=== PATIENT | male | born 2000 | race African-American/Black ===

== ENCOUNTER 2019-02-03 06:01 | Emergency (ER) | payer OTHER ==
[~2019-02-03] VITALS: Ht 182.9 cm; Wt 79.5 kg
[2019-02-03] MEDS ORDERED: ONDANSETRON 4MG/2ML VIAL (J2405) IV ONE (06:45)
[2019-02-03] MEDS ORDERED: KETOROLAC 30 MG/ML VIAL (J1885) IV ONE (06:45)
[2019-02-03 07:20] LABS: BASO % 0.4 % (0.0-1.0); EOS % 0.2 % (0.0-3.0); HEMATOCRIT 42.3 % (42.0-52.0); HEMOGLOBIN 14.1 g/dl (13.5-17.5); LYMPH # 2.7 10^3/uL (1.5-6.5); LYMPH % 25.4 % (24.0-44.0); MEAN CORPUSCULAR HEMOGLOBIN 31.1 pg (27.0-33.0); MEAN CORPUSCULAR HGB CONC 33.3 g/dl (32.0-36.5); MEAN CORPUSCULAR VOLUME 93.2 fl (80.0-96.0); MONO # 0.5 10^3/uL (0.0-0.8); MONO % 4.7 % (0.0-5.0); NEUTROPHILS # 7.3 10^3/uL (1.8-7.7); NEUTROPHILS % 68.9 % (36.0-66.0); PLATELET COUNT, AUTOMATED 274 10^3/uL (150-450); RED BLOOD COUNT 4.54 10^6/uL (4.30-6.10); WHITE BLOOD COUNT 10.6 10^3/uL (4.0-10.0)
[2019-02-03 07:22] LABS: ALBUMIN 4.4 GM/DL (3.2-5.2); ALT/SGPT 27 U/L (12-78); BILIRUBIN,TOTAL 0.5 MG/DL (0.2-1.0); BLOOD UREA NITROGEN 8 MG/DL (7-18); CALCIUM LEVEL 9.2 MG/DL (8.5-10.1); CARBON DIOXIDE LEVEL 29 MEQ/L (21-32); CHLORIDE LEVEL 108 MEQ/L (98-107); GLUCOSE, FASTING 91 MG/DL (70-100); SODIUM LEVEL 142 MEQ/L (136-145); TOTAL PROTEIN 7.6 GM/DL (6.4-8.2)
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
[2019-02-03] MEDS ORDERED: MOBI4TAB PO (10:08)
[2019-02-03] MEDS ORDERED: ZANA4TAB PO (10:08)
[2019-02-03 10:43] VITALS: BP 126/68
--- NOTE | 2019-02-03 10:58 | REP ---
CHEST, TWO VIEWS: There is no evidence of acute infiltrate. No pleural effusion is seen. The heart is normal in size. The mediastinal silhouette is unremarkable. The visualized osseous structures are intact. IMPRESSION: No acute pulmonary disease. Electronically Signed by Raffy Lezama MD 02/03/2019 04:28 P
--- NOTE | 2019-02-03 11:24 | REP ---
LEFT LOWER LEG: AP and lateral views of the left lower leg performed. Metallic screws are seen in the distal femur. I see no acute fracture or dislocation. Oval smooth calcification anterior to the tibiotalar joint on the lateral view may represent an old fracture. IMPRESSION: No acute fracture or dislocation. Electronically Signed by Raffy Lezama MD 02/03/2019 04:33 P
== END 2019-02-03 10:44 | disposition home or self-care (01) ==
LOC: M ED 06:01
DX: M54.2 Cervicalgia (principal); R07.89 Other chest pain; S89.92XA Unspecified injury of left lower leg, initial encounter; V43.62XA Car passenger injured in collision with other type car in traffic accident, initial encounter; Y92.9 Unspecified place or not applicable; Y93.9 Activity, unspecified; Y99.9 Unspecified external cause status; R93.0 Abnormal findings on diagnostic imaging of skull and head, not elsewhere classified; Z72.0 Tobacco use; R79.0 Abnormal level of blood mineral; R56.9 Unspecified convulsions
CPT/HCPCS: 70450; 71046; 72125; 73590; 80053; 85025; 86850; 86900; 86901; 96374; 96375; 99285; J1885; J2405

== ENCOUNTER 2019-02-13 11:19 | Inpatient (IN) | payer OTHER ==
[~2019-02-13] VITALS: Ht 182.9 cm; Wt 73.9 kg
[~2019-02-13 11:19] MED LIST: MOBI4TAB PO; ZANA4TAB PO
[2019-02-13 12:14] LABS: HEMOGLOBIN 13.9 g/dl (13.5-17.5); MEAN CORPUSCULAR HGB CONC 33.1 g/dl (32.0-36.5); MEAN CORPUSCULAR VOLUME 96.8 fl (80.0-96.0); PLATELET COUNT, AUTOMATED 265 10^3/uL (150-450); RED BLOOD COUNT 4.34 10^6/uL (4.30-6.10); WHITE BLOOD COUNT 6.8 10^3/uL (4.0-10.0)
[2019-02-13 13:00] LABS: ACETAMINOPHEN LEVEL < 2.0 UG/ML (10.0-30.0); ALBUMIN 4.1 GM/DL (3.2-5.2); ALT/SGPT 18 U/L (12-78); AMPHETAMINES LEVEL URINE NEGATIVE (NEGATIVE); BARBITURATES URINE NEGATIVE (NEGATIVE); BENZODIAZEPINES URINE NEGATIVE (NEGATIVE); BILIRUBIN,DIRECT 0.3 MG/DL (0.0-0.2); BILIRUBIN,TOTAL 0.9 MG/DL (0.2-1.0); BLOOD UREA NITROGEN 7 MG/DL (7-18); CALCIUM LEVEL 9.2 MG/DL (8.5-10.1); CANNABINOIDS URINE POSITIVE (NEGATIVE); CARBON DIOXIDE LEVEL 29 MEQ/L (21-32); CHLORIDE LEVEL 108 MEQ/L (98-107); COCAINE METABOLITE URINE NEGATIVE (NEGATIVE); CREATININE FOR GFR 1.07 MG/DL (0.70-1.30); ETHYL ALCOHOL (ETHANOL) < 0.003 % (0.000-0.010); GLUCOSE, FASTING 82 MG/DL (70-100); METHADONE URINE NEGATIVE (NEGATIVE); OPIATES URINE NEGATIVE (NEGATIVE); PHENCYCLIDINE URINE NEGATIVE (NEGATIVE); POTASSIUM SERUM 4.4 MEQ/L (3.5-5.1); SALICYLATE LEVEL < 1.7 MG/DL (5.0-30.0); SODIUM LEVEL 141 MEQ/L (136-145); THYROID STIMULATING HORMONE 0.844 uIU/ML (0.463-3.98); TOTAL PROTEIN 6.9 GM/DL (6.4-8.2)
[2019-02-13] MEDS ORDERED: OLANZapine ORAL DISINTEGRATING TAB 5MG PO PRN (15:00)
[2019-02-13] MEDS ORDERED: traZODone 50 MG TAB PO PRN (15:00)
[2019-02-13] MEDS ORDERED: MAALOX 30 ML SUSP *UDC PO PRN (15:00)
[2019-02-13] MEDS ORDERED: ACETAMINOPHEN TAB 650MG DOSE (2X325MG) PO PRN (15:00)
[2019-02-13] MEDS ORDERED: MOM 30ML SUSPENSION UDC PO PRN (15:00)
[2019-02-13] MEDS ORDERED: MELO7.5T35 PO (15:12)
[2019-02-13] MEDS ORDERED: TIZA4TAB4 PO (15:12)
[2019-02-13] MEDS: NICOTINE 21MG/24HR 1 EA TRANSDERMAL TD SCH (16:38)
[2019-02-13 18:32] VITALS: BP 125/58
[2019-02-14 06:47] VITALS: BP 122/63
[2019-02-14] MEDS: NICOTINE 21MG/24HR 1 EA TRANSDERMAL TD SCH (08:38)
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
[2019-02-14 18:00] VITALS: BP 134/85
[2019-02-15 07:14] VITALS: BP 130/63
[2019-02-15] MEDS: ARIPiprazole 2 MG TAB PO SCH (08:14)
[2019-02-15] MEDS: SERTRALINE HCL 50 MG TAB PO SCH (08:14)
[2019-02-15] MEDS: NICOTINE 21MG/24HR 1 EA TRANSDERMAL TD SCH (08:14)
[2019-02-15 18:18] VITALS: BP 133/66
--- NOTE | 2019-02-16 00:04 | MHIPNPDOC ---
[facility] Progress Note Progress Note DATE OF SERVICE: 02/15/19 HISTORY: Patient is a 18 -year-old , male, who as per ED consult: "Patient was seen for an intake with SANTIAGO today at [facility] & rep ortedly spoke of suicide. He was then sent to where this continued. While at , patient reportedly admitted to cinching a belt around his neck last night with suicidal intent. He also continued to endorse SI today, stating that he was planning to " VITAL SIGNS: See below. NEW TEST RESULTS: See below CURRENT MEDICATIONS: See below. MENTAL STATUS EXAMINATION: Patient is a 18-year old male, who is alert, irritable, dressed in hospital clothes, superficially cooperative. Speech: Is impoverished because he is irritated. Tone/rate, rhythm and volume are normal. Language skills are good. Thought processes including: linear but not exactly logical. Thought content: full of cognitive distortions, ideas of reference, some paranoid thoughts, denies SI, denies HI. Abstract reasoning, and computation: fair Description of associations: good. Description of abnormal or psychotic thoughts: denies AV hallucinations, denies thought delusions but at times he seems hypervigilant or mildly paranoid. Judgment: poor. Insight: poor. Orientation: x 3. Recent and remote memory: good. Attention span and concentration: intact. Language: no abnormalities observed. Fund of knowledge: full. Mood: irritable, angry. Affect: congruent with mood. DIAGNOSES: 1. Persistent depressive disorder 2. cluster B personality disorder. ASSESSMENT: I was explaining why he needs therapy, was talking to him about cogn itive distortions and when I talked to him about medications, that it would take 4-6 weeks to kick in, he goes ahead and immediately asks: "Do you mean you are going to keep me for 4 or 6 more weeks ?". I used that to explain that is exactly his problem because I had just explained that he was going to be discharged next week and that he shouldn't yariel staying here for along time be cause this was an acute inpatient setting. MANAGEMENT PLAN: Will continue same treatment plan. TIME SPENT: 25 minutes. Vital Signs Vital Signs Date Time Temp Pulse Resp B/P (MAP) Pulse Ox O2 Delivery O2 Flow Rate FiO2 02/15/19 18:18 99.0 75 18 133/66 (88) 02/13/19 14:20 100 Room Air Current Medications Current Medications Acetaminophen (Tylenol Tab) 650 mg Q6HP PRN PO HEADACHE or DISCOMFORT; Start 02/13/19 at 15:00 Al Hydrox/Mg Hydrox/Simethicone (Mylanta) 30 ml Q4HP PRN PO HEARTBURN/INDIGESTION; Start 02/13/19 at 15:00 Aripiprazole (AbiLIFY) 2 mg DAILY PO Last administered on 02/15/19at 08:14; Start 02/15/19 at 09:00 Home Med (Med Rec Complete!) ASDIRECTED XX ; Start 02/13/19 at 15:30; Stop 02/13/19 at 15:30; Status DC Magnesium Hydroxide (Milk Of Magnesia) 30 ml DAILYPRN PRN PO CONSTIPATION; Start 02/13/19 at 15:00 Nicotine (Nicoderm Cq 21mg) 1 patch DAILY TD Last administered on 02/15/19at 08 :14; Start 02/13/19 at 09:00 Olanzapine (ZyPREXA ZYDIS) 5 mg Q4HP PRN PO ANXIETY/AGITATION; Start 02/13/19 at 15:00 Sertraline HCl (Zoloft) 50 mg QAM PO Last administered on 02/15/19at 08:14; Start 02/15/19 at 09:00 Trazodone HCl (Desyrel) 50 mg QHSP PRN PO INSOMNIA; Start 02/13/19 at 15:00 Allergies Coded Allergies: No Known Allergies (Unverified , 02/13/19) OUSMANE ZHANG MD Feb 15, 2019 23:59
[2019-02-16 06:44] VITALS: BP 104/54
[2019-02-16] MEDS: NICOTINE 21MG/24HR 1 EA TRANSDERMAL TD SCH (09:00)
[2019-02-16] MEDS: ARIPiprazole 2 MG TAB PO SCH (09:09)
[2019-02-16] MEDS: SERTRALINE HCL 50 MG TAB PO SCH (09:09)
--- NOTE | 2019-02-16 09:53 | MHIPNPDOC ---
[facility] Progress Note Progress Note DATE OF SERVICE: 02/16/19 HISTORY: Patient is a 18 -year-old , male, who as per ED consult: "Patient was seen for an intake with SANTIAGO today at [facility] & rep ortedly spoke of suicide. He was then sent to where this continued. While at , patient reportedly admitted to cinching a belt around his neck last night with suicidal intent. He also continued to endorse SI today, stating that he was planning to " VITAL SIGNS: See below. NEW TEST RESULTS: See below CURRENT MEDICATIONS: See below. MENTAL STATUS EXAMINATION: Patient is a 18-year old male, who is alert, dressed in hospital clothes, cooperative. Speech:Tone/rate, rhythm and volume are normal. Language skills are good. Thought processes including: linear and logical. Thought content: improved cognitive distortions, ideas of reference, some para noid thoughts, denies SI, denies HI. Abstract reasoning, and computation: fair Description of associations: good. Description of abnormal or psychotic thoughts: denies AV hallucinations, denies thought delusions but at times he seems hypervigilant or mildly paranoid that is improved today Judgment: poor. Insight: poor. Orientation: x 3. Recent and remote memory: good. Attention span and concentration: intact. Language: no abnormalities observed. Fund of knowledge: full. Mood: "ok," improved range, no longer irritable. Affect: congruent with mood. DIAGNOSES: 1. Persistent depressive disorder 2. cluster B personality disorder. ASSESSMENT:Pt seen and states that his mood is better. States he slept well last night. Feels he is tolerating his medications and they're beneficial. He is attending groups and finding them helpful. He denies SI/HI, hallucinations, delusions. He has improved cognitive distortions, hypervigilance, and paranoia to mild today. Pt feels safe here. MANAGEMENT PLAN: Will continue same treatment plan. TIME SPENT: 30 minutes. Vital Signs Vital Signs Date Time Temp Pulse Resp B/P (MAP) Pulse Ox O2 Delivery O2 Flow Rate FiO2 02/16/19 06:44 98.6 87 12 104/54 (71) 02/13/19 14:20 100 Room Air Current Medications Current Medications Acetaminophen (Tylenol Tab) 650 mg Q6HP PRN PO HEADACHE or DISCOMFORT; Start 02/13/19 at 15:00 Al Hydrox/Mg Hydrox/Simethicone (Mylanta) 30 ml Q4HP PRN PO HEARTBURN/INDIGESTION; Start 02/13/19 at 15:00 Aripiprazole (AbiLIFY) 2 mg DAILY PO Last administered on 02/16/19at 09:09; Start 02/15/19 at 09:00 Home Med (Med Rec Complete!) ASDIRECTED XX ; Start 02/13/19 at 15:30; Stop 02/13/19 at 15:30; Status DC Magnesium Hydroxide (Milk Of Magnesia) 30 ml DAILYPRN PRN PO CONSTIPATION; Start 02/13/19 at 15:00 Nicotine (Nicoderm Cq 21mg) 1 patch DAILY TD Last administered on 02/15/19at 08:14; Start 02/13/19 at 09:00 Olanzapine (ZyPREXA ZYDIS) 5 mg Q4HP PRN PO ANXIETY/AGITATION; Start 02/13/19 at 15:00 Sertraline HCl (Zoloft) 50 mg QAM PO Last administered on 02/16/19at 09:09; Start 02/15/19 at 09:00 Trazodone HCl (Desyrel) 50 mg QHSP PRN PO INSOMNIA; Start 02/13/19 at 15:00 Allergies Coded Allergies: No Known Allergies (Unverified , 02/13/19) DUANE RODRIGUEZ DO Feb 16, 2019 09:40
[2019-02-16 18:00] VITALS: BP 138/68
[2019-02-17 06:44] VITALS: BP 101/51
[2019-02-17] MEDS: NICOTINE 21MG/24HR 1 EA TRANSDERMAL TD SCH (08:22)
[2019-02-17] MEDS: SERTRALINE HCL 50 MG TAB PO SCH (08:22)
[2019-02-17] MEDS: ARIPiprazole 2 MG TAB PO SCH (08:22)
--- NOTE | 2019-02-17 08:43 | MHIPNPDOC ---
[facility] Progress Note Progress Note DATE OF SERVICE: 02/17/19 HISTORY: Patient is a 18 -year-old , male, who as per ED consult: "Patient was seen for an intake with [facility] today at [place] & rep ortedly spoke of suicide. He was then sent to where this continued. While at , patient reportedly admitted to cinching a belt around his neck last night with suicidal intent. He also continued to endorse SI today, stating that he was planning to " VITAL SIGNS: See below. NEW TEST RESULTS: See below CURRENT MEDICATIONS: See below. MENTAL STATUS EXAMINATION: Patient is a 18-year old male, who is alert, dressed in hospital clothes, cooperative. Speech:Tone/rate, rhythm and volume are normal. Language skills are good. Thought processes including: linear and logical. Thought content: denies cognitive distortions, ideas of reference, and paranoid thoughts, denies SI, denies HI. Abstract reasoning, and computation: fair Description of associations: good. Description of abnormal or psychotic thoughts: denies AV hallucinations, denies thought delusions, hypervigilance, paranoia Judgment: poor. Insight: poor. Orientation: x 3. Recent and remote memory: good. Attention span and concentration: intact. Language: no abnormalities observed. Fund of knowledge: full. Mood: "alright," improved range, no longer irritable. Affect: congruent with mood. DIAGNOSES: 1. Persistent depressive disorder 2. cluster B personality disorder. ASSESSMENT:Pt seen and states that his mood is "alright. States he slept well last night. Feels he is tolerating his medications and they're beneficial. He is attending groups and finding them helpful. He denies SI/HI, hallucinations, delusions. He denies cognitive distortions, hypervigilance, and paranoia today. Pt feels safe here. MANAGEMENT PLAN: Will continue same treatment plan. TIME SPENT: 30 minutes. Vital Signs Vital Signs Date Time Temp Pulse Resp B/P (MAP) Pulse Ox O2 Delivery O2 Flow Rate FiO2 02/17/19 06:44 98.2 72 12 101/51 (68) 02/13/19 14:20 100 Room Air Current Medications Current Medications Acetaminophen (Tylenol Tab) 650 mg Q6HP PRN PO HEADACHE or DISCOMFORT; Start 02/13/19 at 15:00 Al Hydrox/Mg Hydrox/Simethicone (Mylanta) 30 ml Q4HP PRN PO HEARTBURN/INDIGESTION; Start 02/13/19 at 15:00 Aripiprazole (AbiLIFY) 2 mg DAILY PO Last administered on 02/17/19 08:22; Start 02/15/19 at 09:00 Home Med (Med Rec Complete!) ASDIRECTED XX ; Start 02/13/19 at 15:30; Stop 02/13/19 at 15:30; Status DC Magnesium Hydroxide (Milk Of Magnesia) 30 ml DAILYPRN PRN PO CONSTIPATION; Start 02/13/19 at 15:00 Nicotine (Nicoderm Cq 21mg) 1 patch DAILY TD Last administered on 02/17/19 08:22; Start 02/13/19 at 09:00 Olanzapine (ZyPREXA ZYDIS) 5 mg Q4HP PRN PO ANXIETY/AGITATION; Start at 15:00 Sertraline HCl (Zoloft) 50 mg QAM PO Last administered on 02/17/19at 08:22; Start 02/15/19 at 09:00 Trazodone HCl (Desyrel) 50 mg QHSP PRN PO INSOMNIA; Start 02/13/19 at 15:00 Allergies Coded Allergies: No Known Allergies (Unverified , 02/13/19) DUANE RODRIGUEZ DO Feb 17, 2019 08:43
[2019-02-17 18:00] VITALS: BP 129/69
[2019-02-18 06:59] VITALS: BP 104/54
[2019-02-18] MEDS: NICOTINE 21MG/24HR 1 EA TRANSDERMAL TD SCH (08:28)
[2019-02-18] MEDS: SERTRALINE HCL 50 MG TAB PO SCH (08:28)
[2019-02-18] MEDS: ARIPiprazole 2 MG TAB PO SCH (08:28)
[2019-02-18] MEDS ORDERED: SERT-155 PO (12:44)
[2019-02-18] MEDS ORDERED: ABIL1TAB13 PO (12:44)
--- NOTE | 2019-02-18 17:18 | MHDSPDOC ---
[facility] Discharge Summary Discharge Summary DATE OF ADMISSION: Feb 13, 2019 at 14:53 DATE OF DISCHARGE: Feb 18, 2019 at 13:10 Diagnoses 1. Adjustment disorder with disruption of mood and conduct. 2. Cluster B personality traits. History of Present Illness The patient a 18 year old man with a history of relatively mild depression who was previously being treated at [facility] presented to the ER with suicidal thoughts. He reports a suicidal gesture prior to coming in to the hospital of clenching a belt around his neck. He was endorsing suicidal thoughts at the time of his admission. He additionally reported depression symptoms. Initial evaluation revealed some cluster B personality traits as well as psychosocial stressors. Consultants Involved No consultants were involved. Treatment and Progress On The Unit The patient was admitted and started on an antidepressant regimen initially consisting of sertraline 50 mg as well as insomnia medication in the form of trazodone. Additionally this was augmented with aripiprazole in order to soothe his depression. The patient over the weekend prior to discharge began to exhibit much more engagement, speaking freely with others, reporting improved mood, b zita insight and ability to plan for the future. On the day of discharge, he reported that he felt very future-orientated and that he was looking forward to starting a new job in [place] as well as spending time with his fiancee and step-daughter. He reports that although he has stressors with the , he feels that his future is really great at this time and that he has made good progress. Discharge Assessment The patient a 18 year old man from the that has a history of relatively mild depression who presented after suicidal thoughts, responded well to antidepressant, management augmented with neuroleptic. The patient has done well overall with the admission and has resolved with improved insight. I discussed the risks and benefits of his treatment namely with sertraline and Abilify including the common and rare side effects as well as which medication not to mix it with as well as well as other discharge plan and future issues. The patient additionally notes no side effects from his medications at this time. Mental Status Examination The patient was met with in his room. He is sitting comfortably on his bed, re ading. When he was met with, his affect is euthymic and bright. Thought process clear. Thought content denies any suicidal or homicidal ideation. Denies any auditory or visual hallucinations. Future orientated. No psychomotor slowing or agitation. Insight and judgment are fair at this time. He is well-dressed, well- groomed. Makes good eye contact and is friendly and cooperative with the exam. Plan/Follow Up Arrangements The social work team worked during the predischarge meeting in order to evaluate for further issues of lethality address them fully before discharge. They worked on safety planning with the patient's family members and chain of command in order to ensure that the patient will have a safe and effective discharge. The amount of time spent in the coordination of care for this patient was approximately 30 minutes. The patient's [id number] was met with where his admission was discussed as well as further safety planning when he returns. Vital Signs/I&Os Vital Signs Date Time Temp Pulse Resp B/P (MAP) Pulse Ox O2 Delivery O2 Flow Rate FiO2 02/18/19 06:59 98.7 91 14 104/54 (71) 02/13/19 14:20 100 Room Air Medications Scheduled Aripiprazole (Abilify) 2 Mg Tablet, 2 MG PO DAILY for mood for 30 Days, #30 Sertraline HCl (Sertraline HCl) 50 Mg Tablet, 50 MG PO QAM for mood for 30 Days, #30 Allergies Coded Allergies: No Known Allergies (Unverified , 02/13/19) PABLO GANT DO Feb 18, 2019 17:18
== END 2019-02-18 13:10 | disposition home or self-care (01) | DRG 882 ==
LOC: M ED 11:19 → M ED INP 14:53 → M PSY 15:41
PROVIDERS: ADMIT Psychiatry & Neurology Psychiatry; ATTEND Psychiatry & Neurology Addiction Medicine
DX: F43.25 Adjustment disorder with mixed disturbance of emotions and conduct (principal); R45.851 Suicidal ideations; F60.89 Other specific personality disorders; G40.909 Epilepsy, unspecified, not intractable, without status epilepticus; F17.200 Nicotine dependence, unspecified, uncomplicated

== ENCOUNTER 2019-08-15 14:13 | Emergency (ER) | payer OTHER ==
[~2019-08-15] VITALS: Ht 182.9 cm; Wt 75.0 kg
[~2019-08-15 14:13] MED LIST changes: +ABIL1TAB13 PO; +MELO7.5T35 PO; +SERT50TA29 PO; +TIZA4TAB4 PO
[2019-08-15 14:18] VITALS: BP 132/63
[2019-08-15] MEDS ORDERED: ONDANSETRON 4 MG ORAL DISINTEGRATING TAB (Q0162 PER 1MG) PO ONE (14:45)
== END 2019-08-15 16:11 | disposition left against medical advice (07) ==
LOC: M ED 14:13 → EDBD 14:13 → M ED 16:11
DX: Z53.21 Procedure and treatment not carried out due to patient leaving prior to being seen by health care provider (principal)

== ENCOUNTER 2019-09-10 18:37 | Emergency (ER) | payer OTHER ==
[~2019-09-10] VITALS: Ht 182.9 cm; Wt 75.0 kg
[2019-09-10] MEDS ORDERED: LIDOCAINE 1% MDV 20ML VIAL SC ONE (21:45)
[2019-09-10] MEDS ORDERED: ADACEL/BOOSTRIX VACCINE (DIPHTH/PERTUSS/ACELL/TETANUS)0.5ML SYR (90715) IM ONE (21:45)
[2019-09-10 22:15] VITALS: BP 124/61
== END 2019-09-10 22:16 | disposition home or self-care (01) ==
LOC: M ED 18:37
DX: S51.812A Laceration without foreign body of left forearm, initial encounter (principal); W26.0XXA Contact with knife, initial encounter; Y92.018 Other place in single-family (private) house as the place of occurrence of the external cause

== ENCOUNTER → 2020-08-30 | Outpatient (CLI) | payer SELFPAY | LOC: M LABSMTC 09:48 | PROVIDERS: ATTEND Pediatrics | DX: Z20.822 Contact with and (suspected) exposure to COVID-19 (principal) ==

== ENCOUNTER 2021-01-19 06:30 | Emergency (ER) | payer OTHER, SELFPAY ==
[2021-01-19] MEDS ORDERED: NS 1,000 ML IV ONE (06:55)
[2021-01-19 07:19] LABS: BASO % 0.4 % (0.0-1.0); EOS % 0.3 % (0.0-3.0); HEMATOCRIT 42.5 % (42.0-52.0); HEMOGLOBIN 13.9 g/dl (13.5-17.5); LYMPH # 2.7 10^3/uL (1.5-5.0); LYMPH % 30.6 % (24.0-44.0); MEAN CORPUSCULAR HEMOGLOBIN 31.7 pg (27.0-33.0); MEAN CORPUSCULAR HGB CONC 32.7 g/dl (32.0-36.5); MONO # 0.7 10^3/uL (0.0-0.8); MONO % 7.8 % (2.0-8.0); NEUTROPHILS # 5.4 10^3/uL (1.5-8.5); NEUTROPHILS % 60.3 % (36.0-66.0); PLATELET COUNT, AUTOMATED 251 10^3/uL (150-450); RED BLOOD COUNT 4.38 10^6/uL (4.30-6.10)
--- NOTE | 2021-01-19 07:37 | REPVR ---
PROCEDURE INFORMATION: Exam: CT Head Without Contrast Exam date and time: 01/19/2021 7:25 AM Age: 20 years old Clinical indication: Injury or trauma; Fall; Blunt trauma (contusions or hematomas); Additional info: Fall, , head injury TECHNIQUE: Imaging protocol: Computed tomography of the head without contrast. Radiation optimization: All CT scans at this facility use at least one of these dose optimization techniques: automated exposure control; mA and/or kV adjustment per patient size (includes targeted exams where dose is matched to clinical indication); or iterative reconstruction. COMPARISON: CT Head without contrast 02/03/2019 6:50 AM FINDINGS: Brain: Normal. No hemorrhage. Unremarkable white matter. No mass effect. Cerebral ventricles: No ventriculomegaly. Paranasal sinuses: Visualized sinuses are unremarkable. No fluid levels. Mastoid air cells: Visualized mastoid air cells are well aerated. Bones/joints: Unremarkable. No acute fracture. Soft tissues: Unremarkable. IMPRESSION: No CT evidence of acute intracranial hemorrhage, mass effect or midline shift. Electronically signed by: Paulo Combs On 01/19/2021 07:37:25 AM
[2021-01-19 07:42] LABS: ALBUMIN 4.4 GM/DL (3.2-5.2); ALT/SGPT 31 U/L (12-78); BILIRUBIN,DIRECT 0.3 MG/DL (0.0-0.2); BLOOD UREA NITROGEN 10 MG/DL (7-18); CARBON DIOXIDE LEVEL 26 MEQ/L (21-32); CHLORIDE LEVEL 106 MEQ/L (98-107); CREATININE FOR GFR 0.97 MG/DL (0.70-1.30); GLOMERULAR FILTRATION RATE > 60.0 (>60); GLUCOSE, FASTING 71 MG/DL (70-100); POTASSIUM SERUM 3.4 MEQ/L (3.5-5.1); SALICYLATE LEVEL 3.3 MG/DL (5.0-30.0); SODIUM LEVEL 143 MEQ/L (136-145); THYROID STIMULATING HORMONE 0.685 uIU/ML (0.358-3.740); TOTAL PROTEIN 7.1 GM/DL (6.4-8.2)
[2021-01-19 07:43] LABS: ACETAMINOPHEN LEVEL < 2.0 UG/ML (10.0-30.0); ETHYL ALCOHOL (ETHANOL) < 0.003 % (0.000-0.010)
[2021-01-19] MEDS ORDERED: carBAMazepine 200MG TABLET PO ONE (08:05)
[2021-01-19] MEDS ORDERED: CARB20TA PO (09:56)
[2021-01-19 10:01] LABS: AMPHETAMINES LEVEL URINE POSITIVE (NEGATIVE); BARBITURATES URINE NEGATIVE (NEGATIVE); BENZODIAZEPINES URINE NEGATIVE (NEGATIVE); CANNABINOIDS URINE POSITIVE (NEGATIVE); COCAINE METABOLITE URINE NEGATIVE (NEGATIVE); METHADONE URINE NEGATIVE (NEGATIVE); OPIATES URINE NEGATIVE (NEGATIVE); PHENCYCLIDINE URINE NEGATIVE (NEGATIVE)
[2021-01-19 10:47] VITALS: BP 134/62
--- NOTE | 2021-01-20 20:31 | ECGEPIP ---
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
== END 2021-01-19 10:52 | disposition home or self-care (01) ==
LOC: M ED 06:30
DX: R56.9 Unspecified convulsions (principal); F33.9 Major depressive disorder, recurrent, unspecified; F17.200 Nicotine dependence, unspecified, uncomplicated

== ENCOUNTER 2022-06-27 18:23 | Emergency (ER) | payer OTHER ==
[~2022-06-27] VITALS: Ht 182.9 cm; Wt 77.7 kg
[~2022-06-27 18:23] MED LIST changes: +CARB20TA PO; +TIZA10TA PO; -TIZA4TAB4 PO
[2022-06-27 18:25] VITALS: BP 132/68
== END 2022-06-27 22:14 | disposition left against medical advice (07) ==
LOC: M ED 18:23
DX: Z53.21 Procedure and treatment not carried out due to patient leaving prior to being seen by health care provider (principal)